=== PATIENT | female | born 1985 | race Caucasian/White ===

== ENCOUNTER 2019-05-18 10:14 | Emergency (ER) | payer OTHER ==
[~2019-05-18] VITALS: Ht 157.5 cm; Wt 50.8 kg
[2019-05-18 10:26] VITALS: BP 121/84
--- NOTE | 2019-05-18 10:41 | NUR ---
SEEN AND EXAMINED BY .
[2019-05-18] MEDS ORDERED: HYDROCODONE/APAP 5/325MG 1 EACH TABLET ONE (10:50)
--- NOTE | 2019-05-18 10:57 | NUR ---
Patient discharged to home in stable condition. Written and verbal after care instructions given. Patient verbalizes understanding of instruction.
[2019-05-18] MEDS ORDERED: HYDROCODONE/APAP 5/325MG 1 EACH TABLET PO ONE (11:00)
== END 2019-05-18 10:58 | disposition home or self-care (01) ==
LOC: ER 10:26
DX: H66.91 Otitis media, unspecified, right ear (principal); H72.91 Unspecified perforation of tympanic membrane, right ear